=== PATIENT | male | born 1985 | race Caucasian/White ===

== ENCOUNTER 2017-01-11 16:22 | Emergency (ER) | payer MEDICAID ==
[~2017-01-11] VITALS: Ht 172.7 cm; Wt 68.5 kg
[2017-01-11 16:40] VITALS: Ht 172.7 cm; Wt 68.5 kg
[2017-01-11] MEDS ORDERED: CEFTRIAXONE 1 GM INJ IM ONE (18:00)
[2017-01-11] MEDS ORDERED: BACITRACIN 0.9 GM OINT TOP ONE (18:00)
[2017-01-11] MEDS ORDERED: LIDOCAINE 2% (MDV) 20 ML INJ INJ ONE (18:00)
[2017-01-11] MEDS ORDERED: SULF1TAB31 PO (18:31)
[2017-01-11] MEDS ORDERED: CEPH250S33 PO (18:32)
[2017-01-11] MEDS ORDERED: MUPI22OI2 TOP (18:32)
--- NOTE | 2017-01-11 21:33 | ERD ---
ER Documentation Chief Complaint Date/Time DATE: 01/11/17 TIME: 21:29 Chief Complaint r leg with dry round scabs that are elevated HPI This is a 31-year-old male is brought in by insistent for dry scabs on bilateral legs. Patient does not know when the scabs appeared, however they are painful. Per his sister patient was lost for many years, and they recently found him. Patient has not had any fevers or chills. He denies any recent travel. Patient is a poor historian. ROS \12 point review of systems was done, all negative except per HPI. Medications Home Meds Active Scripts Mupirocin* (Bactroban*) 2% -22 Gram Oint...g., 1 APPLIC TOP BID for 7 Days, EA Prov:CARLOZ,PANTERA C 01/11/17 Cephalexin* (Cephalexin* Susp) 250 Mg/5 Ml Susp.recon, 5 ML PO Q6 for 7 Days, BOTTLE Prov:CARLOZPANTERA C 01/11/17 Sulfamethoxazole/Trimethoprim* (Bactrim Ds* Tablet) 1 Each Tablet, 1 TAB PO BID for 7 Days, #14 TAB Prov:CARLOZ,PANTERA C 01/11/17 Allergies Allergies: Coded Allergies: No Known Allergy (Unverified , 01/11/17) PMhx/Soc Medical and Surgical Hx: pt denies Medical Hx, pt denies Surgical Hx History of Surgery: No Anesthesia Reaction: No Hx Neurological Disorder: No Hx Respiratory Disorders: No Hx Cardiac Disorders: No Hx Psychiatric Problems: Yes (schizophrenia) Hx Miscellaneous Medical Probl: No Hx Alcohol Use: No Hx Substance Use: No Hx Tobacco Use: No Smoking Status: Never smoker Physical Exam Vitals Vital Signs Date Time Temp Pulse Resp B/P Pulse Ox O2 Delivery O2 Flow Rate FiO2 01/11/17 16:40 98.1 95 18 113/61 97 Physical Exam GENERAL: The patient is well developed and appropriate for usual state of health , in no apparent distress. HEENT: Atraumatic. . CHEST: Clear to auscultation bilaterally. There are no rales, wheezes or rhonchi. HEART: Regular rate and rhythm. No murmurs, clicks, rubs or gallops. SKIN: pustular lesions on bilateral legs. Results 24 hrs Current Medications Medications (Trade) Dose Ordered Sig/Neva Route PRN Reason Start Time Stop Time Status Last Admin Dose Admin Ceftriaxone Sodium (Rocephin) 1 gm ONCE ONCE IM 01/11/17 18:00 01/11/17 18:01 DC 01/11/17 18:11 Lidocaine (Xylocaine 2% (Mdv) 20 ml) 20 ml ONCE ONCE INJ 01/11/17 18:00 01/11/17 18:01 DC 01/11/17 18:11 Bacitracin (Bacitracin Oint (Ud)) 1 applic ONCE ONCE TOP 01/11/17 18:00 01/11/17 18:01 DC 01/11/17 18:12 Procedures/MDM This patient was examined by myself and by Dr. Torrez. Differential Diagnosis: dermatitis, allergic urticaria, viral exanthem, insect bite, fungal infection ,viral exanthem, hand foot mouth disease, , impetigo, cellulitis, abscess, fabienne rosangela syndrome, meningocemia, necrotizing fasciitis. This is a 31-year-old male presents to the ER with scab-like pustular lesions on bilateral legs. Patient is a poor historian, and sister does not know what happened either. These lesions appear to be infected, possibly MRSA. Patient was given a shot of Rocephin in the ER without any complications. He will be sent home with Keflex and with Bactrim. Area was irrigated with copious amounts of normal saline and dressed with bacitracin. She was also given mupirocin. Patient is afebrile, suspicion for systemic infection is low. patient is to follow-up with his primary care doctor within 1 -2 days return to ER sooner if symptoms worsen. My medical decision making shared with the patient understands and agrees with plan Departure Diagnosis: Primary Impression: Rash Condition: Stable Patient Instructions: Self-Care for Skin Rashes Additional Instructions: Call your primary care doctor TOMORROW for an appointment during the next 1-2 days.See the doctor sooner or return here if your condition worsens before your appointment time. PANTERA CARTY Jan 11, 2017 21:33
== END 2017-01-11 19:06 | disposition home or self-care (01) ==
LOC: FTE 16:22
DX: R21 Rash and other nonspecific skin eruption (principal)
CPT/HCPCS: 96372; J0696; Z7502; Z7610